=== PATIENT | male | born 1950 | race Caucasian/White ===

== ENCOUNTER → 2021-03-12 12:56 | Outpatient (BNVA) | payer MEDICARE, SELFPAY | PROVIDERS: PCP Internal Medicine; Visit Provider Urology | DX: R31.29 Other microscopic hematuria (principal); N20.0 Calculus of kidney | CPT/HCPCS: 52000; 99212 ==

== ENCOUNTER 2021-09-07 14:04 | Outpatient (REF) | payer MEDICARE, SELFPAY ==
--- NOTE | ~2021-09-07 | US_ITS ---
EXAMINATION: US RETROPERITONEAL LIMITED (RENAL ONLY) CLINICAL INFORMATION: Calculus of kidney. COMPARISON: None TECHNIQUE: Real-time imaging of the kidneys. FINDINGS: RIGHT KIDNEY: 13.3 x 6.5 x 7.9 cm (SAG x AP x TRV). The kidney is normal in size, contour, and echogenicity. Renal cortical thickness is normal. There is a 8.3 x 5.8 x 7.1 cm cyst exophytic to the lateral upper pole. No renal calculi or hydronephrosis. LEFT KIDNEY: 14.3 x 7.0 x 5.9 cm (SAG x AP x TRV). The kidney is normal in size, contour, and echogenicity. Renal cortical thickness is normal. There is a 3.7 x 3.4 x 3.3 cm cyst in the midpole and 1.2 x 1.5 x 1 cm cyst in the lower pole. There is a 5 x 2 x 4 mm echogenic density with twinkle artifact and acoustic shadowing suggestive of a stone. No mass or hydronephrosis. US/US renal BI IMPRESSION: Small left renal stone. Bilateral renal cysts..
== END 2021-09-07 14:05 | disposition home or self-care (01) ==
LOC: HO.US 14:04
PROVIDERS: PCP Internal Medicine; Visit Provider Urology
DX: N20.0 Calculus of kidney (principal)
CPT/HCPCS: 76775

== ENCOUNTER → 2021-09-15 12:44 | Outpatient (BNVA) | payer MEDICARE, SELFPAY | PROVIDERS: PCP Internal Medicine; Visit Provider Urology | DX: Z13.89 Encounter for screening for other disorder (principal) | CPT/HCPCS: Q3014 ==

== ENCOUNTER 2022-08-25 13:53 | Outpatient (REF) | payer MEDICARE, SELFPAY ==
--- NOTE | ~2022-08-25 | US_ITS ---
EXAMINATION: US RETROPERITONEAL LIMITED (RENAL ONLY) CLINICAL INFORMATION: History of renal stone. COMPARISON: Ultrasound renal 09/07/2021. TECHNIQUE: Real-time imaging of the kidneys. FINDINGS: RIGHT KIDNEY: 12.2 x 6.4 x 6.1 cm (SAG x AP x TRV). The kidney is normal in size, contour, and echogenicity. Renal cortical thickness is normal. No renal calculi or hydronephrosis. Redemonstration of an approximately 7.7 cm renal cyst in the upper pole, previously measuring up to 8.3 cm with now some low level internal echoes but no discrete associated vascularity or mural nodules, favoring to represent proteinaceous/hemorrhagic debris. LEFT KIDNEY: 14.5 x 6.6 x 5.0 cm (SAG x AP x TRV). The kidney is normal in size, contour, and echogenicity. Renal cortical thickness is normal. No renal calculi or hydronephrosis. There is a 3.4 cm simple cyst in the midpole and an additional smaller 1.5 cm slightly lobulated and thinly septated cyst in the midpole, stable compared to 09/07/2021. US/US renal BI IMPRESSION: 1. No nephrolithiasis or hydronephrosis. 2. Bilateral renal cysts, some of which are mildly complex and are stable compared to 09/07/2021. Continued follow-up recommended.
== END 2022-08-25 13:54 | disposition home or self-care (01) ==
LOC: HO.HMGCX 13:53
PROVIDERS: PCP Internal Medicine; Visit Provider Urology
DX: N20.0 Calculus of kidney (principal)
CPT/HCPCS: 76775

== ENCOUNTER → 2022-09-16 13:36 | Outpatient (BNVA) | payer MEDICARE, SELFPAY | PROVIDERS: PCP Internal Medicine; Visit Provider Urology | DX: N20.0 Calculus of kidney (principal) | CPT/HCPCS: Q3014 ==

== ENCOUNTER 2023-09-11 14:25 | Outpatient (REF) | payer MEDICARE, SELFPAY ==
--- NOTE | ~2023-09-11 | US_ITS ---
EXAMINATION: US RETROPERITONEAL LIMITED (RENAL ONLY) CLINICAL INFORMATION: Calculus of kidney. COMPARISON: Renal ultrasound 08/25/2022. X-ray abdomen KUB 03/19/2022. Renal ultrasound 09/07/2021. TECHNIQUE: Real-time imaging of the kidneys. Limited visualization due to bowel gas. FINDINGS: RIGHT KIDNEY: 13.5 x 5.6 x 7.2 cm (SAG x AP x TRV). No hydronephrosis. No renal calculi. Renal cortical thickness is normal. Limited visualization. Lateral upper pole 9.6 cm cyst, previously 7.7 cm on 08/30/2022 and 8.3 cm on 09/07/2021 likely benign. As previously noted continued surveillance would be prudent. Lower pole 0.9 cm cyst with benign features. There is no indication for follow-up imaging. LEFT KIDNEY: 14.2 x 6.7 x 6.5 cm (SAG x AP x TRV). Midpole 3.3 cm cyst with benign features. There is no indication for follow-up imaging. Midpole 1.9 cm cyst with slightly lobulated margins previously measured 1.5 cm on 08/30/2022 and 1.5 cm on 09/07/2021. No hydronephrosis. No renal calculi. Limited visualization. Renal cortical thickness is normal. US/US renal BI IMPRESSION: 1. No renal calculi. No hydronephrosis. 2. Bilateral renal cysts, some of which are mildly complex as detailed above. Continuation of surveillance recommended.
== END 2023-09-11 14:26 | disposition home or self-care (01) ==
LOC: HO.HMGCX 14:25
PROVIDERS: PCP Internal Medicine; Visit Provider Urology
DX: N20.0 Calculus of kidney (principal)
CPT/HCPCS: 76775

== ENCOUNTER → 2023-09-20 13:19 | Outpatient (BNVA) | payer MEDICARE, SELFPAY | PROVIDERS: Visit Provider Urology ==

== ENCOUNTER 2023-11-23 11:12 | Outpatient (AMB) | payer MEDICARE, SELFPAY ==
--- NOTE | 2023-11-23 11:18 | A.OFFVIS_ITS ---
Intake Intake Visit Reasons: 1Y US(set) (confirmed) Intake Note: Patient presents today for a follow up on: US Meds- None Allergies to Antibiotic- No Known Allergies Blood Thinner- None Software Manager Required: No Accompanied by: Self / Same As Patient Allergies No Known Allergies Allergy (Verified 11/23/23 11:28) HPI HPI Comments History of Present Illness Details Adrien is a very pleasant male. He is a patient of Dr. Wen. He is seen for the following urologic conditions. 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 Had been seen with left-sided flank pain. Findings include multiple renal cysts 3-5 cm, on left side 3 small 2 mm stones. Reassurance provided. Minimal symptoms currently. ? They are here for?further evaluation for nephrolithiasis.? Urolithiasis was diagnosed?10/31 .? The patient previously had kidney stones whose composition w?unknown.? Laboratory investigations include?no recent labs.? Prior treatment(s) include?observation ? Prior imaging includes?10/31 , a CT (computed tomography) scan of the abdomen/pelvis (stone protocol), showing radiodense stone(s) - 2mm left side, and 3-5cm cyst on each kidney - 09/04 3-5 cm cyst on each kidney, 4 mm stone left side - 09/06 renal ultrasound bilateral large renal cysts, no evidence of stones ? Current therapeutic plan will continue with fluid intake [facility] History History of surgery Review of Systems Const Denies chills and Denies fever(s) Card Reports no additional complaints and Denies syncope Resp Denies cough GI Denies abdominal pain and Denies heartburn Reports as per HPI and Denies change in libido Neuro Denies syncope Psych Denies change in libido Endo Denies change in libido Physical Exam Const General: cooperative, healthy appearing, comfortable and no acute distress Orientation/consciousness: patient oriented x3 HEENT Face and sinus: Yes normal facial exam Mouth: moist mucous membranes Neck Neck: Yes normal visual inspection, Yes full ROM and Yes trachea midline Chest Chest palpation & inspection: normal inspection of the chest Resp Effort & Inspection: normal respiratory effort, able to speak in complete sentences and no respiratory distress GI Inspection: Yes normal to inspection Back/Spine/Pelvis Cervical Spine: normal cervical lordosis Thoracic/Lumbar Spine: thoracic and lumbar spine normal to inspection Skin General skin exam: no rashes or lesions noted Neuro General: patient oriented x3, gait normal, tone normal and moves all extremities Extrem General: Yes normal to inspection and Yes capillary refill normal Results AMB Urinalysis, Automated UA Leukoctes 0 Genaro/uL Last Edit by Jessica Pretty CMA on 11/23/23 11 :27 UA Nitrite Negative Last Edit by Jessica Pretty CMA on 11/23/23 11: 27 UA Urobilinogen 0.2 mg/dL Last Edit by Jessica Pretty CMA on 4 11:27 UA Protein 0 mg/dL Last Edit by Jessica Pretty CMA on 11/23/23 11:27 UA pH 6.0 Last Edit by Jessica Pretty CMA on 11/23/23 11:27 UA Blood 0 Ezekiel/uL Last Edit by Jessica Pretty CMA on 11/23/23 11:27 UA Specific Alta 1.015 Last Edit by Jessica Pretty CMA on 11:27 UA Ketone Negative Last Edit by Jessica Pretty CMA on 11/23/23 11:2 7 UA Bilirubin 0 mg/dL Last Edit by Jessica Pretty CMA on 11/23/23 11: 27 UA Glucose 0 mg/dL Last Edit by Jessica Pretty CMA on 04/11/24 11:27 Results Reviewed Results Reviewed: Laboratory Last Values Urine pH (Auto) 6.0 11/23/23 11:26 Specific Alta (Auto) 1.015 11/23/23 11:26 Urine Protein (Auto) 0 mg/dL 11/23/23 11:26 Glucose (UA)(Auto) 0 mg/dL 11/23/23 11:26 Urine Ketones (Auto) Negative 11/23/23 11:26 Urine Blood (Auto) 0 Ezekiel/uL 11/23/23 11:26 Urine Nitrite (Auto) Negative 11/23/23 11:26 Urine Bilirubin (Auto) 0 mg/dL 11/23/23 11:26 Urine Urobilinogen (Auto) 0.2 mg/dL 11/23/23 11:26 Leukocyte Esterase (Auto) 0 Genaro/uL 11/23/23 11:26 Assessment & Plan Assessment & Plan (1) Microscopic hematuria: Code(s): R31.29 - Other microscopic hematuria (2) Nephrolithiasis: Code(s): N20.0 - Calculus of kidney Plan Twelve month follow-up Orders: Orders AMB Urinalysis Automated Today R33.9 - Retention of urine, unspecified US renal BI 12 Months N20.0 - Calculus of kidney Patient Instructions: Imaging studies, laboratory and physical exam results were discussed and reviewed in detail. No major barriers to patient understanding were identified. An opportunity to ask questions regarding the treatment plan was provided. All questions were answered. The patient expressed understanding and agreement with the above treatment plan. The patient is aware they should contact our office by phone for worsening of their current condition or the appearance of new urologic symptoms. Compliance is encouraged with any medications and followup testing that is ordered. It is a privilege to participate in the urologic care of your patient. If you have any questions or concerns regarding treatment for the above conditions, or other urologic issues, please do not hesitate to contact me. The office telephone contact is [phone]. This note is constructed using voice recognition software. While every effort has been made to ensure accuracy claim review medical director errors may have been included. Yours sincerely, Dr Silas Diaz MD, [facility] - Urology Providers of Expert, Compassionate Care for the Genitourinary System Coding Level of Care Code Est Pt Level 4 (08792) Diagnoses Microscopic hematuria R31.29 Nephrolithiasis N20.0
== END 2023-11-23 11:55 | disposition home or self-care (01) ==
PROVIDERS: PCP Internal Medicine; Visit Provider Urology
DX: R31.29 Other microscopic hematuria (principal); N20.0 Calculus of kidney; R33.9 Retention of urine, unspecified
CPT/HCPCS: 99213

== ENCOUNTER → 2023-11-23 11:12 | Outpatient (BNVA) | payer MEDICARE, SELFPAY | PROVIDERS: PCP Internal Medicine; Visit Provider Urology | DX: R31.29 Other microscopic hematuria (principal); N20.0 Calculus of kidney | CPT/HCPCS: 81003; 99212 ==